=== PATIENT | male | born 1955 | race Caucasian/White ===

== ENCOUNTER 2021-05-20 08:55 | Day surgery (SDC) | payer MEDICARE, BC ==
[2021-05-18 13:58] VITALS: BMI 20.3
[~2021-05-20 08:55] MED LIST: LACTATED RINGERS 1,000 ML IV SCH
[2021-05-20 09:51] VITALS: TEMP 98.6
[2021-05-20] MEDS ORDERED: LIDOCAINE 1% (10MG/ML) FOR IV START INTRADERMA ONE (09:56)
[2021-05-20] MEDS ORDERED: LIDOCAINE 1% INJ 10MG/ML (20 ML MDV) ONE (10:04)
[2021-05-20] MEDS ORDERED: PROPOFOL 10 MG/ML 20 ML VIAL IV ONE (10:04)
--- NOTE | 2021-05-20 10:07 | P.GSHP ---
History of Present Illness H&P Date: 05/20/21 Chief Complaint: GI bleed This is a 65-year-old male who presents today for GI bleed. Patient states his rectal bleeding stopped. He states his changes diet. Past Medical History Past Medical History: Prostate Disorder Additional Past Medical History / Comment(s): chronic bronchitis, ulcerative colitis History of Any Multi-Drug Resistant Organisms: None Reported Past Surgical History: Orthopedic Surgery Additional Past Surgical History / Comment(s): colonoscopy, lt knee torn ligaments Past Anesthesia/Blood Transfusion Reactions: No Reported Reaction Smoking Status: Former smoker Medications and Allergies Home Medications Medication Instructions Recorded Confirmed Type Calcium Carbonate/Vitamin D3 1 each PO DAILY 05/18/21 05/18/21 History [Caltrate 600 Plus D3 20 Mcg (800 Iu)] Finasteride [Proscar] 5 mg PO DAILY 05/19/21 05/20/21 History Allergies Allergy/AdvReac Type Severity Reaction Status Date / Time No Known Allergies Allergy Verified 05/18/21 13:51 Surgical - Exam Vital Signs Temp Pulse Resp BP Pulse Ox 98.6 F 64 16 136/70 100 05/20/21 09:50 05/20/21 09:50 05/20/21 09:50 05/20/21 09:50 05/20/21 09:50 - General well developed, well nourished, no distress - Eyes PERRL - ENT normal pinna - Neck no masses - Respiratory normal expansion - Cardiovascular Rhythm: regular - Abdomen Abdomen: soft, non tender Assessment and Plan Assessment: GI bleed. We'll perform colonoscopy.
--- NOTE | 2021-05-20 10:30 | P.OP ---
Date of Procedure: 05/20/21 Preoperative Diagnosis: GI bleed Postoperative Diagnosis: Antral gastritis Small hiatal hernia Mild esophagitis Rectal polyp Procedure(s) Performed: EGD Colonoscopy Anesthesia: MAC Surgeon: Camron Bhatt Pathology: other (Antrum, esophagus, rectal polyp) Condition: stable Disposition: PACU Description of Procedure: Patient's placed on the endoscopy table in the lateral position he received IV sedation. Digital rectal exam was performed which revealed a few external hemorrhoids. Possible colonoscope was then placed patient anus passed throughout the entire colon. The ileocecal valve sutures. The cecum, ascending and transverse colon appeared normal. The descending and sigmoid colon appeared normal. Scope was brought back the rectum and a small sessile polyp was visualized. This removed with cold forceps. Scope was withdrawn for patient. Next the gastroscope was pharynx passed in the esophagus and stomach. Scope was then placed through the pylorus. The first and second portion of the duodenum. Normal. Scope was then brought back the antrum this is mildly inflamed. A biopsy performed. The scope was then retroflexed and the remainder of the stomach appeared normal. There was a small hiatal hernia. The GE junction was at 38 cm. The distal esophagus was mildly inflamed a biopsies performed. The proximal esophagus appeared normal. Scope withdrawn for patient.
[2021-05-20 10:49] VITALS: RESP 20
[2021-05-20 11:09] VITALS: BP 103/67; PULSE 66
== END 2021-05-20 11:15 | disposition home or self-care (01) ==
LOC: ORWHC2ENDO 08:55
PROVIDERS: ATTEND Surgery
DX: K29.50 Unspecified chronic gastritis without bleeding (principal); K44.9 Diaphragmatic hernia without obstruction or gangrene; Z87.891 Personal history of nicotine dependence; K20.90 Esophagitis, unspecified without bleeding; K62.1 Rectal polyp; J42 Unspecified chronic bronchitis; K51.90 Ulcerative colitis, unspecified, without complications
CPT/HCPCS: 45380; 43239; 88305; J2001; J2704